=== PATIENT | female | born 1955 | race Two or more races ===

== ENCOUNTER → 2025-01-01 | Outpatient (CLI) | payer MEDICARE, MEDICAID, SELFPAY ==
--- NOTE | 2025-01-01 | XR_ITS ---
Examination: PA lateral chest 2 views TECHNIQUE: Upright PA lateral chest 2 views Exam date and time: January 01, 2025 at 0807 hours Comparison July 05, 2018 INDICATIONS: Preop, diagnosis uterine prolapse FINDINGS: Significant hyperexpansion Normal heart size No pneumonia or pulmonary edema IMPRESSION: COPD No pneumonia or pulmonary edema
== END | disposition home or self-care (01) ==
LOC: CDIM 07:41
PROVIDERS: PCP Physician Assistant; Referring Provider Physician Assistant; Visit Provider Physician Assistant
DX: J44.9 Chronic obstructive pulmonary disease, unspecified (principal)
CPT/HCPCS: 71046